=== PATIENT | female | born 1970 | race Caucasian/White ===

== ENCOUNTER 2017-12-23 06:45 | Day surgery (SDC) | payer OTHER ==
[~2017-12-23] VITALS: Ht 162.6 cm; Wt 94.1 kg
[~2017-12-23 06:45] MED LIST: BIOTCAP PO; CALTTAB10 PO; PERC5TAB12 PO; VITA500T83 PO
[2017-12-23 07:03] VITALS: BP 124/88; PULSE 89; RESP 20; TEMP 98.2; O2SAT 97
[2017-12-23] MEDS ORDERED: ACETA500 PO (07:05)
[2017-12-23] MEDS ORDERED: BIOTCAP PO (07:05)
[2017-12-23] MEDS ORDERED: VITA100021 PO (07:05)
[2017-12-23] MEDS ORDERED: VITA250C3 CHEW (07:05)
[2017-12-23] MEDS ORDERED: CALCTAB19 PO (07:05)
[2017-12-23] MEDS ORDERED: MULT-65 PO (07:05)
[2017-12-23] MEDS ORDERED: SODIUM CHLOR 0.9% 1000 ML INJ 1,000 ML IV ONE (07:15)
[2017-12-23 07:40] LABS: BASOPHIL % 0.5 % (0.0-2.0); EOSINOPHIL # 0.3 TH/MM3 (0-0.4); EOSINOPHIL % 4.7 % (0.0-4.0); HEMATOCRIT 42.5 % (35.0-46.0); HEMOGLOBIN 14.1 GM/DL (11.6-15.3); MEAN CELL VOLUME 87.2 FL (80.0-100.0); MEAN CORPUSCULAR HGB CONC 33.3 % (32.0-36.0); MONO % 7.3 % (0.0-8.0); MONOCYTE # 0.4 TH/MM3 (0-0.9); NEUT % 70.5 % (16.0-70.0); PLATELET COUNT 252 TH/MM3 (150-450); RED BLOOD COUNT 4.87 MIL/MM3 (4.00-5.30); RED CELL DISTRIBUTION WIDTH 14.1 % (11.6-17.2); WHITE BLOOD COUNT 5.7 TH/MM3 (4.0-11.0)
[2017-12-23 07:57] LABS: BICARBONATE 24.3 MEQ/L (21.0-32.0); CALCIUM 8.9 MG/DL (8.5-10.1); CREATININE 0.88 MG/DL (0.50-1.00); PROTHROMBIN TIME - PATIENT 10.6 SEC (9.8-11.6)
[2017-12-23 09:05] VITALS: BP 126/79; PULSE 73; RESP 20; TEMP 98; O2SAT 99
--- NOTE | 2017-12-23 09:41 | PD.RAD ---
Post Procedure Progress Note Pre Procedure Diagnosis: (1) Pseudotumor cerebri Post Procedure Diagnosis: (1) Pseudotumor cerebri Procedure Date: Dec 23, 2017 Supervising Radiologist: Chi Cervantes Proceduralist/Assist: Trenton Bryant RT(R), Steffany Bowers RT(R) Anesthesia: Local Plan of Activity Patient to Unit: ROPU Patient Condition: Good See PACS Report for procedural detail/treatment Spinal Procedure Lumbar Puncture L3-L4 Fluid Description: Clear Additional Detail: opening pressure 32 closing pressure 9 Chi Cervantes MD Dec 23, 2017 09:41
[2017-12-23 10:13] LABS: TOTAL PROTEIN,CSF 35.2 MG/DL (15.0-45.0)
[2017-12-23 10:16] LABS: SUPERNATE COLOR TUBE #1 CLEAR (CLEAR); VOLUME TUBE # 1 1.2 ML
[2017-12-23 10:17] LABS: CSF LYMPHOCYTES 100 %; CSF NEUTROPHILS 0 %
[2017-12-23 10:20] LABS: CSF LYMPHOCYTES 0 %; CSF NEUTROPHILS 0 %
[2017-12-23 10:21] LABS: RBC TUBE #4 2 /MM3; WBC TUBE #4 0 /MM3 (0-10)
[2017-12-23 10:22] LABS: RBC TUBE #1 2 /MM3; WBC TUBE #1 2 /MM3 (0-10)
--- NOTE | 2017-12-23 13:48 | RADRPT ---
EXAM DATE/TIME: 12/23/2017 09:59 [facility] COMPARISON: No previous studies available for comparison. INDICATIONS : Patient presents with blurred vision in need of lumbar puncture. MEDICAL HISTORY : Back pain Smoking SURGICAL HISTORY : Laproscopy D.C. Hammer Toe ENCOUNTER: Initial ACUITY: 4 - 6 months PAIN SCORE: 0/10 LUMBAR PUNCTURE TIME: 0850 hours FLUORO TIME: .56 minutes IMAGE SERIES: 1 ACCESS LEVEL: L2-3 OPENING PRESSURE: 32 cm of water CLOSING PRESSURE: 9 cm of water FLUID: 19 cc of clear CSF was collected and sent to the laboratory for analysis. PROCEDURE : 1. Fluoroscopic guided lumbar puncture. 2. Recording of opening pressure. The risks, benefits and alternatives to the procedure were explained and verbal and written consent w as obtained. The site was prepped in sterile fashion. Full sterile technique was used, including ca p, mask, sterile gloves and gown and a large sterile sheet. Hand hygiene and 2% chlorhexidine and/or betadine/alcohol prep was utilized per protocol for cutaneous antisepsis. The skin and subcutaneous tissues were infiltrated with local anesthetic solution. With fluoroscopic guidance the lumbar thecal sac was punctured at the above level described above and the opening pressure was recorded. The above described fluid was removed without difficulty. The patient tolerated the procedure well and there were no complications. CONCLUSION: Uncomplicated fluoroscopically guided lumbar puncture with pressures as above. Chi Cervantes MD on December 23, 2017 at 13:46 Board Certified Radiologist. This report was verified electronically.
[2017-12-24 09:39] LABS: HSV 1,PCR Negative (Negative)
[2017-12-24 09:53] LABS: CMV DNA QUANT BY RAPID PCR Negative (Negative); CMV PCR SPECIMEN SOURCE LUMBAR PUNCTURE
[2017-12-25 17:53] LABS: CSF CRYPTOCOCCUS ANTIGEN NOT DETECTED (NEGATIVE)
[2017-12-26 07:53] LABS: VZV PCR RESULT <500 (<500 copies)
[2017-12-26 09:23] LABS: CSF CRYPTOCOCCUS AG CONF ND (NOT DETECTD)
== END 2017-12-23 11:05 | disposition home or self-care (01) ==
LOC: HROP 06:45 → HRIP 06:49 → HROP 11:05
PROVIDERS: ATTEND Psychiatry & Neurology Neurology
DX: G93.2 Benign intracranial hypertension (principal)
CPT/HCPCS: 62270; 77003; 80048; 82040; 82042; 82784; 82945; 83873; 83916; 84157; 85025; 85610; 85730; 86403; 86618; 87070; 87205; 87497; 87529; 87799; 88108; 89051

== ENCOUNTER → 2017-12-25 | Day surgery (SDC) | payer OTHER ==
[~2017-12-25] VITALS: Ht 162.6 cm; Wt 94.2 kg
[~2017-12-25] MED LIST changes: +ACETA500 PO; +CALCTAB19 PO; -CALTTAB10 PO; +CHLORHEXIDINE GLUCONATE 2 % 1 PACK (2 CLOTHS) TOPICAL PRN; +LACTATED RINGER'S 1000 ML IV PRN; +METOPROLOL TARTRATE 25 MG TAB PO PRN; +MULT-65 PO; -PERC5TAB12 PO; +POVIDONE IODINE 5% (ANTISEPSIS KIT) 4 APPLICATIONS EACH NARE PRN; +SODIUM CHLORID 0.9% 500 ML IV PRN; +VITA100021 PO; +VITA250C3 CHEW; -VITA500T83 PO
[2017-12-25 12:30] VITALS: BP 120/80; PULSE 65; RESP 16; TEMP 98; O2SAT 98
== END | disposition home or self-care (01) ==
LOC: HSDC 09:57
PROVIDERS: ATTEND Anesthesiology
DX: R51 Headache (principal)
CPT/HCPCS: 62273